=== PATIENT | male | born 1950 | race Caucasian/White ===

== ENCOUNTER 2016-05-17 11:55 | Emergency (ER) | payer MEDICARE, BC ==
[2016-05-17] MEDS ORDERED: Furosemide 40 MG/4 ML VIAL ONE (14:51)
[2016-05-17] MEDS ORDERED: DILTIAZEM 50 MG/10 ML VIAL IV ONE (14:52)
== END 2016-05-17 15:45 | disposition home or self-care (01) ==
LOC: ER 11:55
CPT/HCPCS: 71010; 93005; 96374; 96375